=== PATIENT | female | born 1975 | race Caucasian/White ===

== ENCOUNTER 2017-03-16 11:54 | Emergency (ER) | payer BC ==
[~2017-03-16] VITALS: Ht 160 cm; Wt 54.7 kg
[2017-03-16 11:56] VITALS: TEMP 37; Ht 160 cm; Wt 54.7 kg
[2017-03-16] MEDS ORDERED: FAMOTIDINE 20MG/5ML IV PUSH IV STA (12:24)
[2017-03-16 13:09] LABS: BASO % 0.6 %; BASO ABS # 0.02 K/uL (0-0.2); EOS % 0.9 %; EOS ABS # 0.03 K/uL (0-0.5); HEMATOCRIT 38.3 % (37-47); HEMOGLOBIN 13.3 g/dL (12.0-16.0); LYMPH % 29.9 %; LYMPH ABS # 1.04 K/uL (1.2-3.4); MEAN CELL VOLUME 89.1 fL (80-100); MEAN CORPUSCULAR HEMOGLOBIN 30.9 pg (25-34); MEAN CORPUSCULAR HGB CONC 34.7 g/dl (32-36); MEAN PLATELET VOLUME 11.8 fL (7.4-10.4); MONO % 10.1 %; MONO ABS # 0.35 K/uL (0.11-0.59); NEUT % 58.5 %; NEUT ABS # 2.04 K/uL (1.4-6.5); PLATELET COUNT 212 K/uL (130-400); RED CELL DISTRIBUTION WIDTH CV 12.3 % (11.5-14.5); RED CELL DISTRIBUTION WIDTH SD 39.4 fL (36.4-46.3); WHITE BLOOD COUNT 3.48 K/uL (4.8-10.8)
[2017-03-16 13:28] LABS: PTT PATIENT 27.8 SECONDS (21.0-31.0)
[2017-03-16 13:29] LABS: ALT/SGPT 22 U/L (12-78); AST/SGOT 16 U/L (15-37); BLOOD UREA NITROGEN 10 mg/dl (7-18); CALCIUM 8.5 mg/dl (8.5-10.1); CARBON DIOXIDE 27 mmol/L (21-32); CREATININE 0.84 mg/dl (0.60-1.20); GLUCOSE 86 mg/dl (70-99); LIPASE 141 U/L (73-393); POTASSIUM 3.5 mmol/L (3.5-5.1); SODIUM 137 mmol/L (136-145)
--- NOTE | 2017-03-16 13:30 | DIAGNOSTIC IMAGING REPORT ---
ABDOMEN 2VIEW W/PA CHEST RTN HISTORY: 41 years-old Female UPPER ABDOMINAL/EPIGASTRIC/BILATERAL FLANK PAIN acute upper abdominal pain COMPARISON: None available TECHNIQUE: PA view of the chest with erect and supine views of the abdomen FINDINGS: Cardiomediastinal and hilar silhouettes are within normal limits. There is no pneumothorax, pleural effusion, focal airspace consolidation or overt pulmonary edema. Bones of the chest appear grossly intact. No pneumoperitoneum on the upright projection. Gas pattern is nonobstructive. No urolith or organomegaly identified. Renal shadows are partially obscured by bowel gas. Mild to moderate stool volume is noted throughout the colon. Probable phleboliths of the pelvis. No fracture. IMPRESSION: 1. No acute cardiopulmonary process. 2. Nonobstructive bowel gas pattern without pneumoperitoneum. The above report was generated using voice recognition software. It may contain grammatical, syntax or spelling errors. Electronically signed by: Karthikeyan Rainey M.D. 03/16/2017 1:28 PM Dictated Date/Time: 03/16/2017 1:24 PM
[2017-03-16 13:34] LABS: ALKALINE PHOSPHATASE 58 U/L (45-117); TOTAL PROTEIN 7.2 gm/dl (6.4-8.2)
[2017-03-16] MEDS ORDERED: PROM25TA9 PO (13:59)
[2017-03-16 14:09] VITALS: BP 103/62; PULSE 77; O2SAT 100
--- NOTE | 2017-03-16 20:45 | EMERGENCY ROOM VISIT NOTE ---
History First contact with patient: 12:00 Chief Complaint: FLANK PAIN Stated Complaint: PRESSURE ON SIDES AROUND BACKTO FRONT, NAUSEA History of Present Illness The patient is a 41 year old female who presents to the Emergency Room with complaints of constant pressure of her upper abdomen and bilateral flanks. The patient reports that she noticed generalized upper and anterior abdominal pressure and discomfort approximately 5-6 days ago. The pain was constant in nature, with no specific alleviating or aggravating factors. She did not notice any worsening symptoms after eating. Position and movement does not seem to worsen her discomfort. The patient reports that she had one episode of watery diarrhea on Wednesday morning, or 3 days ago. The patient then reported that she did not have a bowel movement until yesterday, and had a softer normal arnaldo stool. She has not noticed any darkening stool, or recent blood/mucus stools. The patient just finished menstruation, and denies any heavier bleeding than normal. She also denies any pelvic pain or pressure. She has not noticed any urinary symptoms. The patient denies any worsening pain with deep breathing. She has had a remote history of pleurisy, and knows how that feels. She denies any shortness of breath, chest discomfort or tightness, although the patient reports that she did have mild shortness of breath this morning that she attributed to anxiety. The patient has had a prior history of upper endoscopy related to reflux symptoms several years ago. She reports that she was treated this past summer with protonic's for reflux, but has had no other significant problems since then. She denies history of peptic ulcer disease. The patient denies any prior history of abdominal surgeries. The patient has had some nausea, but currently denies any significant symptoms, and rates her discomfort a 7 out of 10. Review of Systems HEENT: Denies dizziness, visual problems, hearing loss, tinnitus. Denies difficulty swallowing or oral lesions. PULMONARY: Denies cough, shortness of breath, sputum production or hemoptysis. CARDIOVASCULAR: Denies chest pain, palpitations, dyspnea on exertion, orthopnea or peripheral edema. GASTROINTESTINAL: See history of present illness. GENITOURINARY: Denies dysuria, frequency, urgency or nocturia. NEUROLOGIC: Denies history of epilepsy, CVA, TIA or chronic headaches. MUSCULOSKELETAL: Denies history of joint tenderness/swelling. SKIN: Denies rashes or lesions. PSYCHIATRIC: Denies history of depression or mental illness. ENDOCRINE: Denies history of diabetes or thyroid disorders. Past Medical/Surgical History Medical Problems: (1) GERD (gastroesophageal reflux disease) Surgical Problems: (1) History of esophagogastroduodenoscopy (EGD) Family History FH: hypertension FH: melanoma Social History Smoking Status: Former Smoker Alcohol Use: none Marital Status: single Housing Status: lives with family Occupation Status: employed Current/Historical Medications Scheduled PRN Promethazine Hcl (Phenergan), 25 MG PO Q6H PRN for Nausea Physical Exam Vital Signs Date Time Temp Pulse Resp B/P (MAP) Pulse Ox O2 Delivery O2 Flow Rate FiO2 03/16/17 14:09 77 16 103/62 100 03/16/17 12:44 Room Air 03/16/17 12:40 79 03/16/17 11:56 37.0 96 17 130/78 100 Room Air Physical Exam CONSTITUTIONAL: Healthy and well nourished. Alert and oriented X 3 with positive affect. Patient does not appear in any acute distress on exam. HEENT: Normocephalic, atraumatic. Pupils equal, round and reactive. No scleral icterus or conjunctival injection/pallor. Ears and nares are clear. OROPHARYNX: No posterior pharyngeal erythema or tonsillar hypertrophy. NECK: Full active range of motion without discomfort. No JVD or carotid bruits. No nuchal rigidity. RESPIRATORY: Clear to auscultation bilaterally with no wheezing, crackles, rhonchi or stridor. Deep breathing does not cause any discomfort. CARDIOVASCULAR: Regular rate and rhythm with no murmurs, rubs or gallops. GASTROINTESTINAL: Bowel sounds present in all quadrants. The patient has mostly epigastric tenderness to palpation. No obvious hepatosplenomegaly. Negative Alfaro sign. Negative CVA tenderness. Negative McBurney's point tenderness. No abdominal rigidity, guarding or rebound. MUSCULOSKELETAL: Full range of motion of all joints without discomfort. INTEGUMENTARY: No rash or other significant dermatologic conditions noted. HEMATOLOGIC: No ecchymosis or petechiae. NEUROLOGIC: Cranial nerves II-XII grossly intact. No focal neurologic deficits noted. Medical Decision & Procedures ER Provider Diagnostic Interpretation: My interpretation of an ECG shows a normal sinus rhythm of [address] elevation or other conduction abnormalities. My interpretation of an abdomen obstruction series with a PA chest view shows moderate stool load. No obstruction, free air or basilar lung consolidations noted. Radiologist report is as follows: ABDOMEN 2VIEW W/PA CHEST RTN HISTORY: 41 years-old Female UPPER ABDOMINAL/EPIGASTRIC/BILATERAL FLANK PAIN acute upper abdominal pain COMPARISON: None available TECHNIQUE: PA view of the chest with erect and supine views of the abdomen FINDINGS: Cardiomediastinal and hilar silhouettes are within normal limits. There is no pneumothorax, pleural effusion, focal airspace consolidation or overt pulmonary edema. Bones of the chest appear grossly intact. No pneumoperitoneum on the upright projection. Gas pattern is nonobstructive. No urolith or organomegaly identified. Renal shadows are partially obscured by bowel gas. Mild to moderate stool volume is noted throughout the colon. Probable phleboliths of the pelvis. No fracture. IMPRESSION: 1. No acute cardiopulmonary process. 2. Nonobstructive bowel gas pattern without pneumoperitoneum. Laboratory Results 03/16/17 12:47 Red Blood Count 4.30, Mean Corpuscular Volume 89.1, Mean Corpuscular Hemoglobin 30.9, Mean Corpuscular Hemoglobin Concent 34.7, Mean Platelet Volume 11.8, Neutrophils (%) (Auto) 58.5, Lymphocytes (%) (Auto) 29.9, Monocytes (%) (Auto) 10.1, Eosinophils (%) (Auto) 0.9, Basophils (%) (Auto) 0.6, Neutrophils # (Auto ) 2.04, Lymphocytes # (Auto) 1.04, Monocytes # (Auto) 0.35, Eosinophils # (Auto ) 0.03, Basophils # (Auto) 0.02 03/16/17 12:47 Test 03/16/17 12:40 03/16/17 12:47 Urine Color YELLOW Urine Appearance CLEAR (CLEAR) Urine pH 6.0 (4.5-7.5) Urine Specific [place] 1.008 (1.000-1.030) Urine Protein NEG (NEG) Urine Glucose (UA) NEG (NEG) Urine Ketones NEG (NEG) Urine Occult Blood TRACE (NEG) Urine Nitrite NEG (NEG) Urine Bilirubin NEG (NEG) Urine Urobilinogen NEG (NEG) Urine Leukocyte Esterase NEG (NEG) Urine WBC (Auto) /hpf (0-5) Urine RBC (Auto) /hpf (0-4) Urine Hyaline Casts (Auto) /lpf (0-5) Urine Epithelial Cells (Auto) /lpf (0-5) Urine Bacteria (Auto) (NEG) Urine RBC 0-4 /hpf (0-4) Urine WBC 1-5 /hpf (0-5) Urine Epithelial Cells 0-5 /lpf (0-5) Urine Bacteria 1+ (NEG) Urine Test NEG (NEG) White Blood Count 3.48 K/uL (4.8-10.8) Red Blood Count 4.30 M/uL (4.2-5.4) Hemoglobin 13.3 g/dL (12.0-16.0) Hematocrit 38.3 % (37-47) Mean Corpuscular Volume 89.1 fL (80-100) Mean Corpuscular Hemoglobin 30.9 pg (25-34) Mean Corpuscular Hemoglobin Concent 34.7 g/dl (32-36) Platelet Count 212 K/uL (130-400) Mean Platelet Volume 11.8 fL (7.4-10.4) Neutrophils (%) (Auto) 58.5 % Lymphocytes (%) (Auto) 29.9 % Monocytes (%) (Auto) 10.1 % Eosinophils (%) (Auto) 0.9 % Basophils (%) (Auto) 0.6 % Neutrophils # (Auto) 2.04 K/uL (1.4-6.5) Lymphocytes # (Auto) 1.04 K/uL (1.2-3.4) Monocytes # (Auto) 0.35 K/uL (0.11-0.59) Eosinophils # (Auto) 0.03 K/uL (0-0.5) Basophils # (Auto) 0.02 K/uL (0-0.2) RDW Standard Deviation 39.4 fL (36.4-46.3) RDW Coefficient of Variation 12.3 % (11.5-14.5) Immature Granulocyte % (Auto) 0.0 % Immature Granulocyte # (Auto) 0.00 K/uL (0.00-0.02) Prothrombin Time 11.0 SECONDS (9.0-12.0) Prothromb Time International Ratio 1.0 (0.9-1.1) Activated Partial Thromboplast Time 27.8 SECONDS (21.0-31.0) Partial Thromboplastin Ratio 1.1 D-Dimer 240 ug/L FEU (0-500) Anion Gap 5.0 mmol/L (3-11) Est Creatinine Clear Calc Drug Dose 72.1 ml/min Estimated GFR () 99.4 Estimated GFR (Non- 85.7 BUN/Creatinine Ratio 12.0 (10-20) Calcium Level 8.5 mg/dl (8.5-10.1) Total Bilirubin 0.5 mg/dl (0.2-1) Direct Bilirubin 0.1 mg/dl (0-0.2) Aspartate Amino Transf (AST/SGOT) 16 U/L (15-37) Alanine Aminotransferase (ALT/SGPT) 22 U/L (12-78) Alkaline Phosphatase 58 U/L (45-117) Total Creatine Kinase 81 U/L (26-192) Troponin I < 0.015 ng/ml (0-0.045) Total Protein 7.2 gm/dl (6.4-8.2) Albumin 4.0 gm/dl (3.4-5.0) Lipase 141 U/L (73-393) The above labs were reviewed. CBC, partial renal profile, LFTs and lipase are grossly normal. Troponin and d-dimer are normal. Urinalysis shows trace hematuria, likely from recent menstruation. Urine is negative. Urinalysis is not suggestive of UTI. Medications Administered Medications (Trade) Dose Ordered Sig/Erna Route Start Time Stop Time Status Last Admin Dose Admin Famotidine (Pepcid 20mg Iv Push) 20 mg ONE STAT IV 03/16/17 12:24 03/16/17 12:28 DC 03/16/17 12:52 20 MG ED Course Patient history and physical exam were performed. Nurse's notes were reviewed. Vital signs were reviewed and were normal. IV access was established, and labs were drawn. The patient was administered IV Pepcid. An ECG was performed and was normal. An abdomen obstruction series with a PA chest review was also performed, showing mild to moderate stool load. No obstructive pattern or other concerning findings. Review of labs does not show any acute findings. The patient was advised of her imaging and laboratory studies. At this point, I suggested that she take Zantac for symptomatic epigastric discomfort. She was also encouraged to avoid caffeine, alcohol and NSAIDs. She was encouraged to follow-up with her PCP for further reevaluation and possible GI referral. She was instructed to return to the emergency department for any progressively worsening symptoms, including developing fever, vomiting, melena or other concerning symptoms. The patient was unable to provide a stool sample while in the emergency department. The patient was happy with plan of care, and voiced understanding of all discharge instructions. Medical Decision Based on today's workup, I do not suspect acute pancreatitis, cholecystitis, hepatitis, bowel obstruction, diverticulitis, appendicitis, UTI or pyelonephritis. Patient has no fever or leukocytosis. Abdominal exam is not consistent with peritonitis or surgical abdomen. Workup also is not suggestive of acute cardiopulmonary etiology. Medication Reconcilliation Current Medication List: was personally reviewed by me Blood Pressure Screening Patient's blood pressure: Normal blood pressure Impression Primary Impression: Epigastric abdominal pain Departure Information Prescriptions Promethazine Hcl (Phenergan) 25 Mg Tab 25 MG PO Q6H Y for Nausea, #10 TAB Prov: Sergo Lim PA 03/16/17 Referrals No Doctor, Assigned (PCP) Patient Instructions My [facility]
== END 2017-03-16 14:10 | disposition home or self-care (01) ==
LOC: C.EDB 11:56 → EDBD 11:56 → C.EDB 14:10
DX: R10.13 Epigastric pain (principal); K21.9 Gastro-esophageal reflux disease without esophagitis; Z98.890 Other specified postprocedural states; Z87.891 Personal history of nicotine dependence; Z82.49 Family history of ischemic heart disease and other diseases of the circulatory system; Z80.9 Family history of malignant neoplasm, unspecified

== ENCOUNTER 2017-10-06 17:50 | Emergency (ER) | payer BC, OTHER ==
[~2017-10-06] VITALS: Ht 157.5 cm; Wt 52.0 kg
[2017-10-06 17:53] VITALS: TEMP 36.6; Ht 157.5 cm; Wt 52.0 kg
[2017-10-06] MEDS ORDERED: ACETAMINOPHEN 325 MG TAB PO STA (18:01)
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
[2017-10-06 18:30] VITALS: BP 116/74; PULSE 89; O2SAT 98
[2017-10-06] MEDS ORDERED: DIPHTHERIA/TETANUS/PERTUSSIS 0.5 ML SYR/VIAL IM. ONE (18:45)
== END 2017-10-06 18:54 | disposition home or self-care (01) ==
LOC: EDBD 17:50 → C.EDB 17:52
DX: S91.115A Laceration without foreign body of left lesser toe(s) without damage to nail, initial encounter (principal); S06.9X9A Unspecified intracranial injury with loss of consciousness of unspecified duration, initial encounter; V49.40XA Driver injured in collision with unspecified motor vehicles in traffic accident, initial encounter; Z23 Encounter for immunization; R40.2412 Glasgow coma scale score 13-15, at arrival to emergency department; Z87.891 Personal history of nicotine dependence

== ENCOUNTER 2017-10-11 13:10 | Emergency (ER) | payer OTHER ==
[~2017-10-11] VITALS: Ht 160 cm; Wt 55.6 kg
[2017-10-11 13:16] VITALS: TEMP 36.6; Ht 160 cm; Wt 55.6 kg
[2017-10-11] MEDS ORDERED: CYCL5TAB PO (13:52)
[2017-10-11] MEDS ORDERED: CITA-294 PO (13:52)
[2017-10-11] MEDS ORDERED: ONDANSETRON 4MG OD TAB PO STA (14:16)
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
[2017-10-11 15:20] VITALS: BP 107/70; PULSE 70; O2SAT 97
== END 2017-10-11 15:40 | disposition home or self-care (01) ==
LOC: C.EDB 13:12 → C.EDD 15:40
DX: S06.0X9A Concussion with loss of consciousness of unspecified duration, initial encounter (principal); S06.9X0S Unspecified intracranial injury without loss of consciousness, sequela; V49.60XS Unspecified car occupant injured in collision with unspecified motor vehicles in traffic accident, sequela